=== PATIENT | male | born 1950 | race Two or more races ===

== ENCOUNTER → 2024-08-05 | Outpatient (CLI) | payer MEDICARE, SELFPAY ==
--- NOTE | 2024-08-05 10:45 | XR_ITS ---
Examination: CT abdomen with intravenous contrast CT pelvis with intravenous contrast 2-D coronal reconstructions 2-D sagittal reconstructions Date and time of exam:August 05, 2024 1252 hours INDICATIONS: Dizziness abdominal pain hematuria this week. CTDI: vol (mGy) 20.4 DLP: (mGycm) 840 Technique: Multiple axial sections of the abdomen and pelvis have been obtained. 64 slice high-resolution scanner used. 3 mm axial sections have been obtained, post intravenous injection 60 cc [id number] 2-D sagittal, coronal reconstructions obtained. Low dose protocols were performed. One or more of the following dose reduction techniques were used; automated exposure control, adjustment of the mA and/or KV according to patient size, use of iterative reconstruction technique. Findings: No focal liver or splenic lesions Absent gallbladder No pancreatic or adrenal mass 1 to 2 mm nonobstructing left renal calculi, no hydronephrosis or ureteral calculi Normal appendix Abdominal aortic calcification no aneurysmal dilatation Colonic diverticulosis, no diverticulitis Contracted urinary bladder 26 mm blood clot versus mass in the urinary bladder IMPRESSION: 1 to 2 mm nonobstructing left renal calculi, no hydronephrosis or ureteral calculi 26 mm blood clot versus mass in the urinary bladder, recommend urinary bladder sonography follow-up
[2024-08-05 11:00] LABS: Collection Type, Urine Clean Catch
[2024-08-05 11:26] LABS: Basophils % (Auto) 0 % (0-2.5); Eosinophils # (Auto) 0.6 Thou/mm3 (0.0-0.5); Eosinophils % (Auto) 8 % (0-10); Hematocrit 45.8 % (41.0-53.0); Hemoglobin 15.4 g/dL (13.5-16.0); Immature Granulocytes % (Auto) 0 % (0-0); Immature Granulocytes Auto 0.02 Thou/mm3 (0.00-0.00); Lymphocytes # (Auto) 1.3 Thou/mm3 (1.0-4.8); Lymphocytes % (Auto) 18 % (10-50); Mean Corpuscular HGB Conc 33.6 g/dl (31.0-37.0); Mean Corpuscular Hemoglobin 32.7 pg (25.0-35.0); Mean Corpuscular Volume 97 fL (80-100); Monocytes # (Auto) 0.7 Thou/mm3 (0.0-0.8); Monocytes % (Auto) 10 % (0-12); Neutrophils # (Auto) 4.3 Thou/mm3 (1.8-7.7); Neutrophils % (Auto) 63 % (37-80); Nucleated Red Blood Cell % 0 /100 WBC (0); Platelet Count 189 Thou/mm3 (140-440); RDW Standard Deviation 44.1 fL (35.1-43.9); Red Blood Count 4.71 Miln/mm3 (4.50-5.90); White Blood Count 6.9 Thou/mm3 (3.8-10.6)
[2024-08-05 11:30] LABS: Bilirubin,Urine Negative (Negative); Blood,Urine 2+ (Negative); Clarity,Urine Clear (Clear/Hazy); Color,Urine Yellow (Lt Yel-Yel); Glucose, Urine Negative (Negative); Ketones,Urine Negative (Negative); Leukocyte Esterase,Urine Negative (Negative); Nitrite,Urine Negative (Negative); PH,Urine 6.5 (5.0-7.0); Protein,Urine Negative (Neg - Trace); RBC,Urine 219 /hpf (0-3); Specific Gravity,Urine 1.016 (1.001-1.035); Squamous Epithelial Cell,Urine < 1 /hpf (0-5); Urobilinogen,Urine Negative mg/dL (0.0-1.0); WBC,Urine 4 /hpf (0-5)
[2024-08-05 11:48] LABS: Alanine Aminotransferase 27 U/L (10-49); Albumin, Serum 4.5 gm/dL (3.4-4.8); Alkaline Phosphatase 96 U/L (46-116); Anion Gap 7 (7-16); Aspartate Amino Transferase 30 U/L (0-34); BUN/Creatinine Ratio 18 Ratio (12-20); Bilirubin,Total 1.6 mg/dL (0.3-1.2); Blood Urea Nitrogen 14 mg/dL (9-23); Calcium 10.4 mg/dL (8.3-10.6); Calcium (Corrected) 10.4 mg/dL (8.5-10.1); Chloride 102 mMol/L (98-107); Creatinine (Component) 0.8 mg/dL (0.6-1.3); Globulin 2.3 gm/dL (2.3-3.5); Glucose 104 mg/dL (74-106); Osmolality,Calculated 279 (275-295); Potassium 4.6 mMol/L (3.4-5.1); Sodium 140 mMol/L (136-145); Total Protein 6.8 gm/dL (5.7-8.2); eGFR > 60 See Note
== END | disposition home or self-care (01) ==
PROVIDERS: PCP Specialist; Referring Provider Specialist; Visit Provider Radiology Diagnostic Radiology
DX: N20.0 Calculus of kidney (principal); R31.9 Hematuria, unspecified
CPT/HCPCS: 36415; 74177; 80053; 81001; 85025; 87086; A4649; Q9967

== ENCOUNTER → 2024-08-24 | Outpatient (CLI) | payer MEDICARE, SELFPAY ==
[2024-08-24 20:30] LABS: Prostate Specific Antigen 0.56 ng/mL (0-4.00)
== END | disposition home or self-care (01) ==
LOC: COPL 16:02
PROVIDERS: PCP Specialist; Referring Provider Urology; Visit Provider Urology
DX: N40.1 Benign prostatic hyperplasia with lower urinary tract symptoms (principal)
CPT/HCPCS: 36415; 84153

== ENCOUNTER → 2024-08-24 | Outpatient (BNVA) | payer MEDICARE, SELFPAY | END | disposition home or self-care (01) | PROVIDERS: PCP Specialist; Referring Provider Specialist; Visit Provider Urology | DX: N40.1 Benign prostatic hyperplasia with lower urinary tract symptoms (principal); N13.8 Other obstructive and reflux uropathy; I25.10 Atherosclerotic heart disease of native coronary artery without angina pectoris; Z95.5 Presence of coronary angioplasty implant and graft; Z86.73 Personal history of transient ischemic attack (TIA), and cerebral infarction without residual deficits; I48.91 Unspecified atrial fibrillation; Z87.891 Personal history of nicotine dependence; I10 Essential (primary) hypertension; E78.00 Pure hypercholesterolemia, unspecified | CPT/HCPCS: 81003; 99212; G0463 ==

== ENCOUNTER → 2024-09-09 | Outpatient (BNVA) | payer MEDICARE, SELFPAY | END | disposition home or self-care (01) | PROVIDERS: PCP Specialist; Referring Provider Specialist; Visit Provider Urology | DX: N32.89 Other specified disorders of bladder (principal); N40.1 Benign prostatic hyperplasia with lower urinary tract symptoms; N13.8 Other obstructive and reflux uropathy; I10 Essential (primary) hypertension; E78.00 Pure hypercholesterolemia, unspecified; I25.10 Atherosclerotic heart disease of native coronary artery without angina pectoris; I48.91 Unspecified atrial fibrillation; Z87.891 Personal history of nicotine dependence | CPT/HCPCS: 52224; 81003; 96372; A4217; A4649; C1894; J1580; A9270 ==

== ENCOUNTER 2024-09-29 09:15 | Day surgery (SDC) | payer MEDICARE, SELFPAY ==
[2024-09-28 12:16] VITALS: BMI 35.9
[2024-09-28 13:21] LABS: Basophils % (Auto) 0 % (0-2.5); Eosinophils # (Auto) 0.6 Thou/mm3 (0.0-0.5); Eosinophils % (Auto) 10 % (0-10); Hemoglobin 15.3 g/dL (13.5-16.0); Immature Granulocytes % (Auto) 1 % (0-0); Immature Granulocytes Auto 0.03 Thou/mm3 (0.00-0.00); Lymphocytes # (Auto) 1.4 Thou/mm3 (1.0-4.8); Lymphocytes % (Auto) 22 % (10-50); Mean Corpuscular Hemoglobin 32.9 pg (25.0-35.0); Mean Corpuscular Volume 97 fL (80-100); Monocytes # (Auto) 0.6 Thou/mm3 (0.0-0.8); Monocytes % (Auto) 10 % (0-12); Neutrophils # (Auto) 3.6 Thou/mm3 (1.8-7.7); Neutrophils % (Auto) 57 % (37-80); Nucleated Red Blood Cell % 0 /100 WBC (0); Platelet Count 215 Thou/mm3 (140-440); RDW Standard Deviation 41.9 fL (35.1-43.9); Red Blood Count 4.65 Miln/mm3 (4.50-5.90); White Blood Count 6.2 Thou/mm3 (3.8-10.6)
[2024-09-28 13:37] LABS: Partial Thromboplastin Time 26.6 Seconds (22.0-36.0)
[2024-09-28 13:44] LABS: Alanine Aminotransferase 25 U/L (10-49); Albumin, Serum 4.7 gm/dL (3.4-4.8); Alkaline Phosphatase 92 U/L (46-116); Anion Gap 1 (7-16); Aspartate Amino Transferase 30 U/L (0-34); BUN/Creatinine Ratio 18 Ratio (12-20); Bilirubin,Total 1.1 mg/dL (0.3-1.2); Blood Urea Nitrogen 16 mg/dL (9-23); Calcium 10.2 mg/dL (8.3-10.6); Calcium (Corrected) 10.2 mg/dL (8.5-10.1); Chloride 106 mMol/L (98-107); Creatinine (Component) 0.9 mg/dL (0.6-1.3); Globulin 2.4 gm/dL (2.3-3.5); Glucose 97 mg/dL (74-106); Osmolality,Calculated 275 (275-295); Potassium 4.1 mMol/L (3.4-5.1); Sodium 137 mMol/L (136-145); Total Protein 7.1 gm/dL (5.7-8.2); eGFR > 60 See Note
--- NOTE | 2024-09-28 15:03 | SUR.PREOP ---
Cardiac history and records reviewed with Dr Buchanan.
--- NOTE | 2024-09-28 15:04 | SUR.PREOP ---
Mitomycin for the bladder available, confirmed with Da at pharmacy.
[2024-09-29] VITALS (14 sets, daily range): BP systolic 135–176; BP diastolic 54–99; PULSE 60–74; RESP 12–22; TEMP 36.3–36.6; O2SAT 95–100; BMI 35.9
--- NOTE | 2024-09-29 13:37 | PD.SUROPNT ---
Date of Procedure 09/29/24 Pre Op Diagnosis Gross hematuria, 4 to 5 cm tumor left anterolateral wall, 1 small 5 mm tumor posterior wall, BPH with urinary obstruction and LUTS and very trabeculated bladder Post Op Diagnosis Same Procedure Cystoscopic examination, transurethral resection of the bladder tumor, bladder instillation of Mitomycin-C 40 mg and 40 cc of sterile saline Findings Obstructive prostate, trabeculated bladder, large tumor bladder to anterior lateral and posterior lateral wall left side of the bladder Procedure Description Indication for procedure this is a 74-year-old gentleman he was seen in urology office with a history of gross hematuria this patient had a large bladder tumor 4 to 5 cm anterolateral wall left side and small tumor half centimeter posterior bladder wall the patient was recommended transurethral resection of the bladder tumor and bladder instillation of Mitomycin-C procedure and complications were discussed with the patient in great detail informed consent is obtained Patient was brought to the operating room in a satisfactory condition after appropriate premedication he was appropriately identified by the surgeon and operating room staff. General anesthesia was given uneventfully patient was positioned in a dorsal lithotomy position parts were prepped and draped in the usual sterile fashion 21 cystoscope was introduced into the bladder per urethra examination of urethra without any stricture prostatic urethra revealed bilateral obstructive lobe. Inside of the bladder in all the quadrant was carried out he had coarse bladder trabeculation. There was a large tumor 4 to 5 cm anterolateral wall left side and small tumor in the posterior bladder wall about half centimeter. Next cystoscope was withdrawn gently I introduced a 25 Montenegrin resectoscope into the bladder per urethra. Resection of the tumor was started close to the dome of the bladder on the left side it was carried down until the tumor was completely resected. With the Chintan evacuator the tumor fragments were removed the base of the tumor was fulgurated no active bleeding was seen and also small bladder tumor in the posterior bladder wall was resected and fulgurated. Instrument was withdrawn gently three-way is a 20 Montenegrin Amaya catheter was inserted into the bladder bladder was irrigated return off urine was clear next 40 mg of Mitomycin-C and 40 cc of sterile saline was instilled into the bladder patient after having tolerated the procedure well was sent to recovery room in a satisfactory condition to be discharged home he will be followed up in urology office postoperative instructions are given to patient and his in great detail thank you Anesthesia GETA Pathology / specimen Other (Bladder tumor) Pathology comment: Bladder tumor Estimated Blood Loss 40.0 Condition Stable Disposition PACU Surgeon Francesco Allan MD Surgical Staff Operation Date: 09/29/24 11:45 Case Staff Anesthesiologist: Harry Buchanan
[2024-09-29] MEDS: fentaNYL CIT INJ 50 mCg/ML AMP 2ML IV (14:40)
--- NOTE | 2024-09-29 15:57 | SUR.PHASEI ---
1318: Pt received in [facility] via gurney. Pt groggy, but awake. Resp even, unlabored. VS stable. Pt states he is having pain to lower abdomen. Has mitomycin instillation at 1404 to bladder and will remain for 1 hr and then drained. Pt to be turned q15 min. This was explained to pt. Pt has [address] way gould catheter in place clamped. 1348: Pt has constant c/o pain to bladder. Anesthesia gave pain medication 1335. Pt resting more quietly at this time. VS stable. Resp even, unlabored.
--- NOTE | 2024-09-29 16:17 | SUR.PHASEII ---
1504: Pt turned q15 min x4. 1510: Mitomycin drained from bladder. Pt stated some relief. VS stable. Resp even, unlabored. 1520: Amaya bag showing pale red drainage. 1540: Pt level in
--- NOTE | 2024-09-29 16:21 | SUR.PHASEII ---
1540: Pt pain level increasing. Rates pain level 10/10. VS stable. Resp even, unlabored. Pain medication given per order. 1555: Pt restiing comfortably at this time. Resp even, unlabored. VS stable. 1610: Pt continues to rest comfortable. Gould bag shows pale red drainage. at bedside. 1630: Pt stated pain level much better. Sitting up tolerating po fluids with no difficulty swallowing and no n/v. 1645: Pt fully awake, oriented x3. Pt and provided hands on teaching to empty gould bag and instructed not to remove it. Dr. Allan will remove it Friday and was instructed to make a follow up appointment to be seen by Dr. Allan. 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 Pt discharged from [facility] in stable condition.
== END 2024-09-29 15:45 | disposition home or self-care (01) ==
PROVIDERS: PCP Specialist; Referring Provider Urology; Visit Provider Urology
PROC: 0TBB8ZZ Excision of Bladder, Via Natural or Artificial Opening Endoscopic (ICD-10-PCS; CPT 52240; principal; 2024-09-29 11:30)
DX: C67.9 Malignant neoplasm of bladder, unspecified (principal); N32.89 Other specified disorders of bladder; N13.8 Other obstructive and reflux uropathy; N40.1 Benign prostatic hyperplasia with lower urinary tract symptoms
CPT/HCPCS: 52240; 51720; 36415; 80053; 85025; 85610; 85730; A4217; A4649; C1894; J0131; J1100; J1580; J2405; J2704; J2710; J2765; J3010; J3490; A9270; J1596; J1805

== ENCOUNTER → 2024-09-30 | Outpatient (BNVA) | payer MEDICARE, SELFPAY | END | disposition home or self-care (01) | PROVIDERS: PCP Specialist; Referring Provider Specialist; Visit Provider Urology | DX: N40.1 Benign prostatic hyperplasia with lower urinary tract symptoms (principal); N13.8 Other obstructive and reflux uropathy; Z80.42 Family history of malignant neoplasm of prostate; I10 Essential (primary) hypertension; I25.10 Atherosclerotic heart disease of native coronary artery without angina pectoris; E66.9 Obesity, unspecified; Z68.35 Body mass index [BMI] 35.0-35.9, adult; E78.00 Pure hypercholesterolemia, unspecified; I48.91 Unspecified atrial fibrillation | CPT/HCPCS: 99212; G0463 ==

== ENCOUNTER → 2024-10-05 | Outpatient (BNVA) | payer MEDICARE, SELFPAY | END | disposition home or self-care (01) | PROVIDERS: PCP Specialist; Referring Provider Specialist; Visit Provider Urology | DX: N40.1 Benign prostatic hyperplasia with lower urinary tract symptoms (principal); N13.8 Other obstructive and reflux uropathy; I25.10 Atherosclerotic heart disease of native coronary artery without angina pectoris; Z80.42 Family history of malignant neoplasm of prostate; E66.9 Obesity, unspecified; Z68.35 Body mass index [BMI] 35.0-35.9, adult; Z87.891 Personal history of nicotine dependence; I48.91 Unspecified atrial fibrillation; Z46.6 Encounter for fitting and adjustment of urinary device | CPT/HCPCS: 96372; 99212; J1580; G0463 ==

== ENCOUNTER → 2024-10-28 | Outpatient (BNVA) | payer MEDICARE, SELFPAY | END | disposition home or self-care (01) | PROVIDERS: PCP Specialist; Referring Provider Specialist; Visit Provider Urology | DX: N40.1 Benign prostatic hyperplasia with lower urinary tract symptoms (principal); R39.12 Poor urinary stream; I10 Essential (primary) hypertension; E78.00 Pure hypercholesterolemia, unspecified; I25.10 Atherosclerotic heart disease of native coronary artery without angina pectoris; I48.91 Unspecified atrial fibrillation; Z86.73 Personal history of transient ischemic attack (TIA), and cerebral infarction without residual deficits | CPT/HCPCS: 51741; 51798 ==

== ENCOUNTER → 2024-12-03 | Outpatient (BNVA) | payer MEDICARE, SELFPAY | END | disposition home or self-care (01) | PROVIDERS: PCP Specialist; Referring Provider Specialist; Visit Provider Student in an Organized Health Care Education/Training Program | DX: Z76.89 Persons encountering health services in other specified circumstances (principal) | CPT/HCPCS: 99212; G0463 ==

== ENCOUNTER → 2024-12-07 | Outpatient (CLI) | payer MEDICARE, SELFPAY ==
--- NOTE | 2024-12-07 16:20 | XR_ITS ---
Examination: Venous duplex lower extremity sonogram, bilateral. Date and time of exam: December 07, 2024 1634 hrs. Indications: Bilateral leg swelling and pain beginning 3 days ago Technique: Multiple sonographic images of the deep venous system have been obtained. B-mode/2-D grayscale imaging of vascular structures and Doppler spectral analysis (waveforms) and color performed Both legs are examined. Findings: Deep venous systems do not demonstrate abnormal echogenicity. All visualized deep veins exhibit compressibility. All visualized deep veins exhibit augmentation. Impression: Negative for deep vein thrombosis
== END | disposition home or self-care (01) ==
PROVIDERS: PCP Specialist; Referring Provider Specialist; Visit Provider Specialist
DX: R60.0 Localized edema (principal); R22.40 Localized swelling, mass and lump, unspecified lower limb; Z03.89 Encounter for observation for other suspected diseases and conditions ruled out
CPT/HCPCS: 93970

== ENCOUNTER → 2024-12-10 | Outpatient (BNVA) | payer MEDICARE, SELFPAY | END | disposition home or self-care (01) | PROVIDERS: PCP Specialist; Referring Provider Specialist; Visit Provider Urology | DX: N40.1 Benign prostatic hyperplasia with lower urinary tract symptoms (principal); N13.8 Other obstructive and reflux uropathy; I10 Essential (primary) hypertension; E78.00 Pure hypercholesterolemia, unspecified; I25.10 Atherosclerotic heart disease of native coronary artery without angina pectoris; I48.91 Unspecified atrial fibrillation; Z87.891 Personal history of nicotine dependence | CPT/HCPCS: 76872; 81003 ==

== ENCOUNTER → 2024-12-10 | Outpatient (CLI) | payer MEDICARE, SELFPAY ==
[2024-12-10 11:51] LABS: Basophils % (Auto) 0 % (0-2.5); Eosinophils # (Auto) 0.3 Thou/mm3 (0.0-0.5); Eosinophils % (Auto) 4 % (0-10); Hemoglobin 13.4 g/dL (13.5-16.0); Immature Granulocytes % (Auto) 0 % (0-0); Immature Granulocytes Auto 0.02 Thou/mm3 (0.00-0.00); Lymphocytes # (Auto) 0.9 Thou/mm3 (1.0-4.8); Lymphocytes % (Auto) 12 % (10-50); Mean Corpuscular HGB Conc 34.4 g/dl (31.0-37.0); Mean Corpuscular Hemoglobin 32.1 pg (25.0-35.0); Mean Corpuscular Volume 94 fL (80-100); Monocytes # (Auto) 0.8 Thou/mm3 (0.0-0.8); Monocytes % (Auto) 11 % (0-12); Neutrophils # (Auto) 5.3 Thou/mm3 (1.8-7.7); Neutrophils % (Auto) 73 % (37-80); Nucleated Red Blood Cell % 0 /100 WBC (0); Platelet Count 199 Thou/mm3 (140-440); RDW Standard Deviation 40.9 fL (35.1-43.9); Red Blood Count 4.17 Miln/mm3 (4.50-5.90); White Blood Count 7.3 Thou/mm3 (3.8-10.6)
[2024-12-10 12:07] LABS: Alanine Aminotransferase 14 U/L (10-49); Albumin, Serum 4.4 gm/dL (3.4-4.8); Albumin/Globulin Ratio 1.8 (1.2-2.2); Alkaline Phosphatase 98 U/L (46-116); Anion Gap 6 (7-16); Aspartate Amino Transferase 22 U/L (0-34); BUN/Creatinine Ratio 15 Ratio (12-20); Bilirubin,Total 1.5 mg/dL (0.3-1.2); Blood Urea Nitrogen 17 mg/dL (9-23); Calcium 9.4 mg/dL (8.3-10.6); Calcium (Corrected) 9.4 mg/dL (8.5-10.1); Carbon Dioxide 34.4 mMol/L (20.0-31.0); Chloride 105 mMol/L (98-107); Creatinine (Component) 1.1 mg/dL (0.6-1.3); Globulin 2.5 gm/dL (2.3-3.5); Glucose 115 mg/dL (74-106); Osmolality,Calculated 291 (275-295); Potassium 3.6 mMol/L (3.4-5.1); Sodium 145 mMol/L (136-145); Total Protein 6.9 gm/dL (5.7-8.2); eGFR > 60 See Note
[2024-12-10 12:23] LABS: INR 1.1 (0.9-1.3); Partial Thromboplastin Time 29.7 Seconds (22.0-36.0); Prothrombin Time 12.4 Seconds (9.0-12.2)
== END | disposition home or self-care (01) ==
LOC: COPL 11:09
PROVIDERS: PCP Specialist; Referring Provider Specialist; Visit Provider Specialist
DX: C67.9 Malignant neoplasm of bladder, unspecified (principal)
CPT/HCPCS: 36415; 80053; 85025; 85610; 85730